=== PATIENT | female | born 1955 | race Caucasian/White ===

== ENCOUNTER → 2016-05-18 | Outpatient (CLI) | payer MEDICARE, OTHER ==
--- NOTE | 2016-05-18 15:27 | RADRPT ---
PROCEDURE: Chest x-ray CLINICAL INDICATION: COUGH TECHNIQUE: Two views PA and lateral COMPARISON: none FINDINGS: The cardiomediastinal silhouette is normal in size. Pulmonary vasculature is within normal limits. There is mild bibasilar atelectasis.. There is moderate aortic calcification. There is no evidence of pleural effusion. There is no pneumothorax. There is mild to moderate thoracic spine degenerative disk changes. IMPRESSION: 1. Mild bibasilar atelectasis. Moderate aortic calcification. RPTAT: DD .Tae Gooden MD, MD Date Time Electronically viewed and signed by .Tae Gooden MD, on 05/18/2016 15:26 .T/
== END | disposition home or self-care (01) ==
LOC: RAD 14:09
PROVIDERS: ATTEND Internal Medicine
DX: R05 Cough (principal); J98.11 Atelectasis
CPT/HCPCS: 71020